=== PATIENT | male | born 1940 | race Caucasian/White ===

== ENCOUNTER → 2017-11-18 | Outpatient (CLI) | payer MEDICARE, BC ==
--- NOTE | 2017-11-18 15:43 | CT ---
EXAMINATION TYPE: CT abdomen pelvis w con DATE OF EXAM: 11/18/2017 COMPARISON: HISTORY: Gross hematuria, history of renal cell cancer and right nephrectomy. CT DLP: 1411 mGycm CONTRAST: CT scan of the abdomen and pelvis is performed with Oral Contrast and with IV Contrast, patient injec rosalinda with 80 mL of Isovue M300. FINDINGS: LUNG BASES-: No visible nodule. No infiltrate. The stomach is intrathoracic in location. LIVER/GB: No calcified gallstones. Innumerable simple cysts are seen of the liver. No solid hepatic lesions are detected. Largest cyst measures approximately 2.2 cm. Biliary tree is of normal caliber. PANCREAS: No inflammation. No distinct mass. SPLEEN: No splenic enlargement. No lesion seen. ADRENALS: No nodule. No thickening. KIDNEYS/BLADDER: Right-sided nephrectomy change. Right renal fossa is unremarkable. Left kidney demon strates parapelvic cysts. No solid left renal masses are detected. Urinary bladder is distended. Ther e is a large diverticulum emanating from the superior portion of the urinary bladder to the left of m idline measuring 8.3 x 7.2 cm. Several additional smaller bladder diverticula are noted. No distinct urinary bladder wall mass or thickening. BOWEL: Normal appendix. Normal bowel caliber. No inflammation. GENITAL ORGANS: No gross abnormality. LYMPH NODES: No greater than 1cm abdominal or pelvic lymph nodes are appreciated. AORTA: No significant abnormality. OSSEOUS STRUCTURES: No significant abnormality is seen. OTHER: No significant additional abnormality is seen. IMPRESSION: 1. Right-sided nephrectomy change. 2. Urinary bladder distention with multiple bladder diverticula noted. 3. Parapelvic cyst left kidney. No solid renal mass or nephrolithiasis seen. 4. The stomach is intrathoracic in location.
== END | disposition home or self-care (01) ==
LOC: RADCTMAIN 13:18
PROVIDERS: ATTEND Urology
DX: N28.1 Cyst of kidney, acquired (principal); N32.3 Diverticulum of bladder; N32.89 Other specified disorders of bladder; Z90.5 Acquired absence of kidney; Z85.528 Personal history of other malignant neoplasm of kidney; Z88.2 Allergy status to sulfonamides
CPT/HCPCS: 82565; 84520; 74177; 36415; Q9967

== ENCOUNTER 2018-05-30 17:52 | Observation (INO) | payer MEDICARE, BC ==
[2018-05-30 18:32] LABS: Glucose,Whole Blood 95 mg/dL (75-99)
[2018-05-30 18:52] LABS: Basophils % (A) 0 %; Eosinophils # (A) 0.1 k/uL (0-0.7); Eosinophils % (A) 1 %; HCT 44.2 % (39.0-53.0); HGB 14.2 gm/dL (13.0-17.5); Lymphocytes # (A) 0.7 k/uL (1.0-4.8); Lymphocytes % (A) 10 %; MCH 30.3 pg (25.0-35.0); MCHC 32.1 g/dL (31.0-37.0); MCV 94.2 fL (80.0-100.0); Mean Platelet Volume 7.5; Monocytes # (A) 0.3 k/uL (0-1.0); Monocytes % (A) 5 %; Neutrophils # (A) 5.7 k/uL (1.3-7.7); Neutrophils % (A) 84 %; Platelet Count 284 k/uL (150-450); RBC 4.69 m/uL (4.30-5.90); RDW 14.1 % (11.5-15.5); WBC 6.9 k/uL (3.8-10.6)
[2018-05-30 19:02] LABS: Partial Thromboplastin Time 24.5 sec (22.0-30.0); Prothrombin Time 10.5 sec (9.0-12.0)
[2018-05-30 19:03] LABS: Albumin 3.8 g/dL (3.5-5.0); Calcium 9.3 mg/dL (8.4-10.2); Potassium 4.2 mmol/L (3.5-5.1); Total Bilirubin 0.7 mg/dL (0.2-1.3); Total Protein 6.3 g/dL (6.3-8.2)
--- NOTE | 2018-05-30 19:05 | CT ---
EXAMINATION TYPE: CT brain wo con DATE OF EXAM: 05/30/2018 COMPARISON: None HISTORY: 78-year-old male with confusion, Altered mental status. TECHNIQUE: Examination was done in axial plane without intravenous contrast. Coronal and sagittal r econstructions performed. CT DLP: 1094.4 mGycm Automated exposure control for dose reduction was used. FINDINGS: There is no evidence of acute intracranial hemorrhage, acute ischemic changes, mass, mass-effect, or extra-axial fluid collection. There is no effacement of cerebral sulci or basal subarachnoid cister ns. There is no hydrocephalus. There is no midline shift. Bo-white matter distinction is preserv ed. Mild generalized supratentorial volume loss with mild patchy white matter hypodensities likely relati ng to changes of chronic small vessel ischemic disease. Scleral banding on the right. Leftward nasal septal deviation. Mastoid air cells well pneumatized. Pa ranasal sinuses appear clear. IMPRESSION: Mild generalized atrophy and changes of chronic small vessel ischemic disease. No acute intracranial abnormality seen.
--- NOTE | 2018-05-30 19:21 | XR ---
EXAMINATION TYPE: XR chest 2V DATE OF EXAM: 05/30/2018 COMPARISON: None HISTORY: 78-year-old male dizziness, altered mental status TECHNIQUE: AP and lateral views FINDINGS: Heart mildly enlarged. Mild hyperinflation. Suggestion of an underlying large hiatal hernia. Patchy d ensity at the right apex. Mild interstitial prominence. No significant pleural effusion seen. IMPRESSION: 1. Mild cardiomegaly and COPD. Patchy right apical opacity could represent pneumonia. Follow-up recom mended. 2. Underlying large hiatal hernia.
[2018-05-30 19:24] LABS: Acetaminophen <10.0 ug/mL; Salicylate <1.0 mg/dL
[2018-05-30 19:42] LABS: Appearance,Urine Clear (Clear); Bilirubin,Urine Negative (Negative); Blood,Urine Negative (Negative); Color,Urine Light Yellow; Glucose,Urine (UA) Negative (Negative); Ketones,Urine Negative (Negative); Leukocyte Esterase,Urine Negative (Negative); Nitrite,Urine Negative (Negative); PH, Urine 6.5 (5.0-8.0); Protein,Urine Negative (Negative); Urobilinogen,Urine <2.0 mg/dL (<2.0)
[2018-05-30 19:47] LABS: Amphetamine Screen,Urine Not Detected (NotDetected); Barbiturate Screen,Urine Not Detected (NotDetected); Benzodiazepines Screen,Urine Not Detected (NotDetected); Cocaine Screen,Urine Not Detected (NotDetected); Methadone Screen, Urine Not Detected (NotDetected); Opiate Screen,Urine Not Detected (NotDetected); Oxycodone Screen, Urine Not Detected (NotDetected); Phencyclidine Screen,Urine Not Detected (NotDetected); Tricyclic Antidepressant,Urine Not Detected (NotDetected); Urn Cannabinoid Scrn Not Detected (NotDetected)
--- NOTE | 2018-05-30 23:34 | ED ---
Altered Mental Status HPI - General Source: patient, EMS Mode of arrival: EMS Limitations: no limitations <Cinthia Collins - Last Filed: 05/31/18 00:18> <Ashley Anand - Last Filed: 05/31/18 07:57> - General Chief Complaint: Altered Mental Status Stated Complaint: exposed to fumes Time Seen by Provider: 05/30/18 18:14 - History of Present Illness Initial Comments: 78-year-old male presenting today for chief complaint of exposure to marijuana. Upon arrival patient is alert and oriented 3, however he would at times get easily distracted and started talking to himself. Patient had to be redirected often and was overall a very poor historian. ROS (-), patient denies any recent fever, chills, shortness of breath, chest pain, back pain, abdominal pain, nausea or vomiting, numbness or tingling, dysuria or hematuria, constipation or diarrhea, headaches or visual changes, or any other complaints. Pt NIH 0. Patient denies ingestion of medications or drugs. Patients only complaint is that he was exposed to marijuana smoke from his downstairs neighbors. At one point in history taking patient became emotional taking about feuding within his family, will consult EPS. Attempted to call patients family, no answer. No other numbers available to obtain patient baseline. (Cinthia Collins) - Related Data Home Medications Medication Instructions Recorded Confirmed Acetaminophen Tab [Tylenol Tab] 500 mg PO Q6H PRN 07/05/15 07/06/15 Aspirin 81 mg PO Q2D 07/05/15 07/06/15 Cephalexin [Keflex] 250 mg PO DAILY 07/05/15 07/06/15 Doxazosin [Cardura] 4 mg PO BID 07/05/15 07/06/15 Multivitamin [Men's Multi-Vitamin] 1 each PO DAILY 07/05/15 07/06/15 Ranitidine HCl [Zantac] 150 mg PO BID 07/05/15 07/06/15 Previous Rx's Medication Instructions Recorded Hydrocodone/Acetaminophen [[place] 1 - 2 each PO Q4HR PRN #30 tab 07/06/15 5-325] Allergies Allergy/AdvReac Type Severity Reaction Status Date / Time No Known Allergies Allergy Verified 07/06/15 10:16 Review of Systems ROS Other: All systems not noted in ROS Statement are negative. <Cinthia Collins - Last Filed: 05/31/18 00:18> ROS Other: All systems not noted in ROS Statement are negative. <Ashley Anand P - Last Filed: 05/31/18 07:57> ROS Statement: Those systems with pertinent positive or pertinent negative responses have been documented in the HPI. Past Medical History Past Medical History: Cancer, Eye Disorder, GERD/Reflux, Osteoarthritis (OA), Prostate Disorder Additional Past Medical History / Comment(s): Currently has an enlarged prostate & has been on an antbx. for several yrs. for this. Hiatal hernia, problems with constipation. Hx. of kidney Ca. History of Any Multi-Drug Resistant Organisms: None Reported Past Surgical History: Adenoidectomy, Hernia Repair, Tonsillectomy Additional Past Surgical History / Comment(s): L Hernia repair, R kidney removed 12 yrs. ago, R eye surgery 15 yrs. ago colonoscopy. Past Anesthesia/Blood Transfusion Reactions: No Reported Reaction Past Psychological History: No Psychological Hx Reported Smoking Status: Former smoker - Past Family History Brother(s) Family Medical History: Cancer Additional Family Medical History / Comment(s): unknown Mother Family Medical History: No Reported History <Cinthia Collins - Last Filed: 05/31/18 00:18> General Exam Limitations: no limitations <Cinthia Collins - Last Filed: 05/31/18 00:18> - General Exam Comments Initial Comments: General: The patient is awake and alert, in no distress, and does not appear acutely ill. Eye: Pupils are equal, round and reactive to light, extra-ocular movements are intact. No nystagmus. There is normal conjunctiva bilaterally. No signs of icterus. Ears, nose, mouth and throat: There are moist mucous membranes and no oral lesions. Neck: The neck is supple, there is no tenderness or JVD. Cardiovascular: There is a regular rate and rhythm. No murmur, rub or gallop is appreciated. Respiratory: Lungs are clear to auscultation, respirations are non-labored, breath sounds are equal. No wheezes, stridor, rales, or rhonchi. Gastrointestinal: Soft, non-distended, non-tender abdomen without masses or organomegaly noted. There is no rebound or guarding present. No CVA tenderness. Bowel sounds are unremarkable. Musculoskeletal: Normal ROM, no tenderness. Strength 5/5. Sensation intact. Pulses equal bilaterally 2+. Neurological: A&O x 3. CN II-XII intact, memory intact to immediately, intermediate and senior care recall. Able to follow simple verbal. Able to name a common object (pen). High quality, labial (pa) and lingual (la) speech. Low quality posterior pharynx/larynx (ga) voice sounds. Able to express general knowledge (days in a week). No hemineglect or inattention noted. Finger agnosia (-) and spatially oriented. Light touch and temperature sensation present over the face, chest, abdomen, back, UE bilaterally, and LE bilaterally. Able to localize point during point localization b/l and extinction. No visible bulk atrophy, hypertrophy, fasciculations, or myoclonus of the UE or LE b/l. Full PROM in UE and LE b/l. Bilateral muscle strength 5/5 for the following muscles: deltoid, biceps, triceps, brachioradialis, wrist extensors/flexor, hip flexor, hip abductors/adductors, hamstrings, quadriceps, feet dorsiflexors/plantar flexors. Finger to nose, finger to the examiners finger, and heel to pérez coordinated and accurate b/l. Coordinated and even demonstration of hand flip, finger to thumb, and toe tap b/l. Gait is coordinated and even in stride with tandem, toe and heel walk. (-) pronator drift. No nuchal rigidity. Skin: Skin is warm and dry and no rashes or lesions are noted. Psychiatric: Cooperative, easily distracted, required frequent redirection. (Cinthia Collins) Course Vital Signs 05/30/18 05/30/18 05/30/18 18:10 19:51 22:19 Temperature 97.8 F 98.1 F Pulse Rate 68 69 68 Respiratory 20 18 16 Rate Blood Pressure 172/98 170/107 Blood Pressure [Right Arm] O2 Sat by Pulse 97 Oximetry 05/31/18 05/31/18 05/31/18 00:46 01:24 01:56 Temperature 98.0 F 98.4 F 97.7 F Pulse Rate 66 86 Respiratory 18 17 18 Rate Blood Pressure 181/104 162/92 Blood Pressure 166/82 [Right Arm] O2 Sat by Pulse 98 96 Oximetry Medical Decision Making - Lab Data Result diagrams: 05/30/18 18:19 05/30/18 18:19 <Cinthia Collins - Last Filed: 05/31/18 00:18> - Lab Data Result diagrams: 05/30/18 18:19 05/30/18 18:19 <Ashley Anand - Last Filed: 05/31/18 07:57> - Medical Decision Making 78 presenting for exposure to fumes. pt states his neighbors were smoking something and he thinks he inhaled it, making him feel "funny". So he called EMS. Laboratory studies unremarkable. CT brain without contrast negative. EKG within acceptable limits. Troponin (-). CXR revealed focal pneumonia-given ceftriaxone. UA unremarkable. Pt will be admitted as we do not know his baseline there are no neurological deficits, however patient is easily distracted, and often found talking to himself. EPS cleared patient. Discussed case with attending provider, Dr. Anand who will speak to admitting provider Dr. Nickerson. Patient is agreeable with admission for pneumonia and AMS, repeat neuro exam no change. No focal deficits. (Cinthia Collins) Son examine the patient. Based on the patient's advanced age, her mental status and finding of pneumonia and radiology I do feel the patient would be safest remaining in the hospital for further evaluation. (Ashley Anand) - Lab Data Lab Results 05/30/18 05/30/18 05/30/18 Range/Units 18:19 18:19 18:19 WBC 6.9 (3.8-10.6) k/uL RBC 4.69 (4.30-5.90) m/uL Hgb 14.2 (13.0-17.5) gm/dL Hct 44.2 (39.0-53.0) % MCV 94.2 (80.0-100.0) fL MCH 30.3 (25.0-35.0) pg MCHC 32.1 (31.0-37.0) g/dL RDW 14.1 (11.5-15.5) % Plt Count 284 (150-450) k/uL Neutrophils % 84 % Lymphocytes % 10 % Monocytes % 5 % Eosinophils % 1 % Basophils % 0 % Neutrophils # 5.7 (1.3-7.7) k/uL Lymphocytes # 0.7 L (1.0-4.8) k/uL Monocytes # 0.3 (0-1.0) k/uL Eosinophils # 0.1 (0-0.7) k/uL Basophils # 0.0 (0-0.2) k/uL PT 10.5 (9.0-12.0) sec INR 1.0 (<1.2) APTT 24.5 (22.0-30.0) sec Sodium 142 (137-145) mmol/L Potassium 4.2 (3.5-5.1) mmol/L Chloride 109 H (98-107) mmol/L Carbon Dioxide 26 (22-30) mmol/L Anion Gap 7 mmol/L BUN 23 H (9-20) mg/dL Creatinine 1.15 (0.66-1.25) mg/dL Est GFR (CKD-EPI)AfAm 70 (>60 ml/min/1.73 sqM) Est GFR (CKD-EPI)NonAf 60 (>60 ml/min/1.73 sqM) Glucose 98 (74-99) mg/dL POC Glucose (mg/dL) (75-99) mg/dL POC Glu [employer] Operator ID Calcium 9.3 (8.4-10.2) mg/dL Total Bilirubin 0.7 (0.2-1.3) mg/dL AST 29 (17-59) U/L ALT 28 (21-72) U/L Alkaline Phosphatase 102 (38-126) U/L Ammonia (<30) umol/L Troponin I (0.000-0.034) ng/mL Total Protein 6.3 (6.3-8.2) g/dL Albumin 3.8 (3.5-5.0) g/dL Urine Color Urine Appearance (Clear) Urine pH (5.0-8.0) Ur Specific [place] (1.001-1.035) Urine Protein (Negative) Urine Glucose (UA) (Negative) Urine Ketones (Negative) Urine Blood (Negative) Urine Nitrite (Negative) Urine Bilirubin (Negative) Urine Urobilinogen (<2.0) mg/dL Ur Leukocyte Esterase (Negative) Salicylates mg/dL Urine Opiates Screen (NotDetected) Ur Oxycodone Screen (NotDetected) Urine Methadone Screen (NotDetected) Ur Propoxyphene Screen (NotDetected) Acetaminophen ug/mL Ur Barbiturates Screen (NotDetected) U Tricyclic Antidepress (NotDetected) Ur Phencyclidine Scrn (NotDetected) Ur Amphetamines Screen (NotDetected) U Methamphetamines Scrn (NotDetected) U Benzodiazepines Scrn (NotDetected) Urine Cocaine Screen (NotDetected) U Marijuana (THC) Screen (NotDetected) 05/30/18 05/30/18 05/30/18 Range/Units 18:19 18:19 18:19 WBC (3.8-10.6) k/uL RBC (4.30-5.90) m/uL Hgb (13.0-17.5) gm/dL Hct (39.0-53.0) % MCV (80.0-100.0) fL MCH (25.0-35.0) pg MCHC (31.0-37.0) g/dL RDW (11.5-15.5) % Plt Count (150-450) k/uL Neutrophils % % Lymphocytes % % Monocytes % % Eosinophils % % Basophils % % Neutrophils # (1.3-7.7) k/uL Lymphocytes # (1.0-4.8) k/uL Monocytes # (0-1.0) k/uL Eosinophils # (0-0.7) k/uL Basophils # (0-0.2) k/uL PT (9.0-12.0) sec INR (<1.2) APTT (22.0-30.0) sec Sodium (137-145) mmol/L Potassium (3.5-5.1) mmol/L Chloride (98-107) mmol/L Carbon Dioxide (22-30) mmol/L Anion Gap mmol/L BUN (9-20) mg/dL Creatinine (0.66-1.25) mg/dL Est GFR (CKD-EPI)AfAm (>60 ml/min/1.73 sqM) Est GFR (CKD-EPI)NonAf (>60 ml/min/1.73 sqM) Glucose (74-99) mg/dL POC Glucose (mg/dL) (75-99) mg/dL POC Glu [employer] Operator ID Calcium (8.4-10.2) mg/dL Total Bilirubin (0.2-1.3) mg/dL AST (17-59) U/L ALT (21-72) U/L Alkaline Phosphatase (38-126) U/L Ammonia <9 (<30) umol/L Troponin I <0.012 (0.000-0.034) ng/mL Total Protein (6.3-8.2) g/dL Albumin (3.5-5.0) g/dL Urine Color Urine Appearance (Clear) Urine pH (5.0-8.0) Ur Specific [place] (1.001-1.035) Urine Protein (Negative) Urine Glucose (UA) (Negative) Urine Ketones (Negative) Urine Blood (Negative) Urine Nitrite (Negative) Urine Bilirubin (Negative) Urine Urobilinogen (<2.0) mg/dL Ur Leukocyte Esterase (Negative) Salicylates <1.0 mg/dL Urine Opiates Screen (NotDetected) Ur Oxycodone Screen (NotDetected) Urine Methadone Screen (NotDetected) Ur Propoxyphene Screen (NotDetected) Acetaminophen <10.0 ug/mL Ur Barbiturates Screen (NotDetected) U Tricyclic Antidepress (NotDetected) Ur Phencyclidine Scrn (NotDetected) Ur Amphetamines Screen (NotDetected) U Methamphetamines Scrn (NotDetected) U Benzodiazepines Scrn (NotDetected) Urine Cocaine Screen (NotDetected) U Marijuana (THC) Screen (NotDetected) 05/30/18 05/30/18 Range/Units 18:31 19:00 WBC (3.8-10.6) k/uL RBC (4.30-5.90) m/uL Hgb (13.0-17.5) gm/dL Hct (39.0-53.0) % MCV (80.0-100.0) fL MCH (25.0-35.0) pg MCHC (31.0-37.0) g/dL RDW (11.5-15.5) % Plt Count (150-450) k/uL Neutrophils % % Lymphocytes % % Monocytes % % Eosinophils % % Basophils % % Neutrophils # (1.3-7.7) k/uL Lymphocytes # (1.0-4.8) k/uL Monocytes # (0-1.0) k/uL Eosinophils # (0-0.7) k/uL Basophils # (0-0.2) k/uL PT (9.0-12.0) sec INR (<1.2) APTT (22.0-30.0) sec Sodium (137-145) mmol/L Potassium (3.5-5.1) mmol/L Chloride (98-107) mmol/L Carbon Dioxide (22-30) mmol/L Anion Gap mmol/L BUN (9-20) mg/dL Creatinine (0.66-1.25) mg/dL Est GFR (CKD-EPI)AfAm (>60 ml/min/1.73 sqM) Est GFR (CKD-EPI)NonAf (>60 ml/min/1.73 sqM) Glucose (74-99) mg/dL POC Glucose (mg/dL) 95 (75-99) mg/dL POC Glu [employer] Operator ID Cinthia Roberson Calcium (8.4-10.2) mg/dL Total Bilirubin (0.2-1.3) mg/dL AST (17-59) U/L ALT (21-72) U/L Alkaline Phosphatase (38-126) U/L Ammonia (<30) umol/L Troponin I (0.000-0.034) ng/mL Total Protein (6.3-8.2) g/dL Albumin (3.5-5.0) g/dL Urine Color Light Yellow Urine Appearance Clear (Clear) Urine pH 6.5 (5.0-8.0) Ur Specific [place] 1.010 (1.001-1.035) Urine Protein Negative (Negative) Urine Glucose (UA) Negative (Negative) Urine Ketones Negative (Negative) Urine Blood Negative (Negative) Urine Nitrite Negative (Negative) Urine Bilirubin Negative (Negative) Urine Urobilinogen <2.0 (<2.0) mg/dL Ur Leukocyte Esterase Negative (Negative) Salicylates mg/dL Urine Opiates Screen Not Detected (NotDetected) Ur Oxycodone Screen Not Detected (NotDetected) Urine Methadone Screen Not Detected (NotDetected) Ur Propoxyphene Screen Not Detected (NotDetected) Acetaminophen ug/mL Ur Barbiturates Screen Not Detected (NotDetected) U Tricyclic Antidepress Not Detected (NotDetected) Ur Phencyclidine Scrn Not Detected (NotDetected) Ur Amphetamines Screen Not Detected (NotDetected) U Methamphetamines Scrn Not Detected (NotDetected) U Benzodiazepines Scrn Not Detected (NotDetected) Urine Cocaine Screen Not Detected (NotDetected) U Marijuana (THC) Screen Not Detected (NotDetected) Disposition Is patient prescribed a controlled substance at d/c from ED?: No Time of Disposition: 00:18 Decision to Admit Reason: Admit from EC Decision Date: 05/31/18 Decision Time: 00:18 <Cinthia Collins - Last Filed: 05/31/18 00:18> <Ashley Anand - Last Filed: 05/31/18 07:57> Clinical Impression: Pneumonia, Altered mental status Disposition: ADMITTED IP TO THIS HOSP Condition: Stable
[2018-05-31] MEDS ORDERED: NALOXONE 0.4 MG/ML 1 ML VIAL IV PRN (00:14)
[2018-05-31] MEDS ORDERED: hydrALAZINE HCL 20 MG/ML 1 ML VIAL IVP STA (01:14)
[2018-05-31] MEDS ORDERED: MORPHINE SULFATE 2 MG/ML SYRINGE IVP PRN (02:01)
[2018-05-31] MEDS: SODIUM CHLORIDE 0.9% 1,000 ML IV SCH (06:16)
[2018-05-31 09:26] VITALS: BMI 23.0
[2018-05-31] MEDS ORDERED: ACETAMINOPHEN TAB 500 MG TAB PO PRN (11:45)
--- NOTE | 2018-05-31 11:50 | P.HPIM ---
History of Present Illness This is a pleasant 78 years old male with past medical history of GERD, as her arthritis, BPH history of kidney cancer and hematuria. He presents because he felt he feeling high causes his neighbor somebody was smoking some tracts close to him. However patient told me this morning his back to his normal state. He still complaining of from cough and mild phlegm which is clear to yellow in color. But no dyspnea and no chest pain. No abdominal pain. He has history of prostate problem and kidney cancer and hematuria. However his UA is negative. Dr. 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 On admission CBC, INR, BMP, and liver enzymes are within normal limits. Urinalysis and urine toxicology drug screen was negative too. . CT of the brain showing no acute abnormality. Chest x-ray showing COPD, patchy right apical opacity, suspicious for pneumonia as per radiologist. And large hiatal hernia Review of Systems CONSTITUTIONAL: No fever, no malaise, no fatigue. HEENT: No recent visual problems or hearing problems. Denied any sore throat. CARDIOVASCULAR: No orthopnea, PND, no palpitations, no syncope. PULMONARY: No shortness of breath, no cough, no hemoptysis. GASTROINTESTINAL: No diarrhea, no nausea, no vomiting, no abdominal pain. Normoactive bowel sounds. NEUROLOGICAL: No headaches, no weakness, no numbness. HEMATOLOGICAL: Denies any bleeding or petechiae. GENITOURINARY: Denies any burning micturition, frequency, or urgency. MUSCULOSKELETAL/RHEUMATOLOGICAL: Denies any joint pain, swelling, or any muscle pain. ENDOCRINE: Denies any polyuria or polydipsia. Past Medical History Past Medical History: Cancer, Eye Disorder, GERD/Reflux, Osteoarthritis (OA), Prostate Disorder Additional Past Medical History / Comment(s): Currently has an enlarged prostate & has been on an antbx. for several yrs. for this. Hiatal hernia, problems with constipation. Hx. of kidney Ca. History of Any Multi-Drug Resistant Organisms: None Reported Past Surgical History: Adenoidectomy, Hernia Repair, Tonsillectomy Additional Past Surgical History / Comment(s): L Hernia repair, R kidney removed 12 yrs. ago, R eye surgery 15 yrs. ago colonoscopy. Past Anesthesia/Blood Transfusion Reactions: No Reported Reaction Past Psychological History: No Psychological Hx Reported Smoking Status: Former smoker Additional Past Alcohol Use History / Comment(s): Quit smoking in 1989. Smoked 1-2 PPd x 40 yrs. 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 Past Drug Use History: None Reported - Past Family History Brother(s) Family Medical History: Cancer Additional Family Medical History / Comment(s): Hawa, brother from cancer. Eladio, brother from heart condition. Cordell, brother, alive- unknown history Mother History Unknown: Yes Family Medical History: No Reported History Sister(s) History Unknown: Yes Family Medical History: No Reported History Additional Family Medical History / Comment(s): Pascale Rueda, sister. Vijaya Kyle, sister Medications and Allergies Home Medications Medication Instructions Recorded Confirmed Type Acetaminophen Tab [Tylenol Tab] 500 mg PO Q6H PRN 07/05/15 05/31/18 History Cephalexin [Keflex] 250 mg PO DAILY 07/05/15 05/31/18 History Multivitamin [Men's Multi-Vitamin] 1 tab PO DAILY 07/05/15 05/31/18 History Doxazosin Mesylate [Cardura] 4 mg PO BID 05/31/18 05/31/18 History Finasteride [Proscar] 5 mg PO DAILY 05/31/18 05/31/18 History Montelukast [Singulair] 10 mg PO DAILY 05/31/18 05/31/18 History Promethazine 6.25MG/5Ml [Phenergan 5 - 10 ml PO QID PRN 05/31/18 05/31/18 History Syrup] Allergies Allergy/AdvReac Type Severity Reaction Status Date / Time No Known Allergies Allergy Verified 05/31/18 08:12 Physical Exam Vitals: Vital Signs Temp Pulse Pulse Resp BP BP Pulse Ox 05/31/18 08:58 99 05/31/18 08:00 17 05/31/18 05:50 97.2 F L 78 17 141/88 97 05/31/18 04:23 72 18 159/85 97 05/31/18 01:56 97.7 F 86 18 162/92 96 05/31/18 01:24 98.4 F 17 166/82 05/31/18 00:46 98.0 F 66 18 181/104 98 05/30/18 22:19 98.1 F 68 16 03/24/19 19:51 69 18 170/107 05/30/18 18:10 97.8 F 68 20 172/98 97 Intake and Output 05/30/18 05/31/18 05/31/18 22:59 06:59 14:59 Output Total 350 Balance -350 Output: Urine 350 Other: Voiding Method Toilet # Voids 2 Weight 77.111 kg GENERAL: The patient is alert and oriented x3, not in any acute distress. Well developed, well nourished. HEENT: Pupils are round and equally reacting to light. EOMI. No scleral icterus. No conjunctival pallor. Normocephalic, atraumatic. No pharyngeal erythema. No thyromegaly. CARDIOVASCULAR: S1 and S2 present. No murmurs, rubs, or gallops. PULMONARY: Chest is clear to auscultation, no wheezing or crackles. ABDOMEN: Soft, nontender, nondistended, normoactive bowel sounds. No palpable organomegaly. MUSCULOSKELETAL: No joint swelling or deformity. EXTREMITIES: No cyanosis, clubbing, or pedal edema. NEUROLOGICAL: Gross neurological examination did not reveal any focal deficits. SKIN: No rashes. Get up and go test: Normal Results CBC & Chem 7: 05/30/18 18:19 05/30/18 18:19 Labs: Abnormal Lab Results - Last 24 Hours (Table) 05/30/18 05/30/18 Range/Units 18:19 18:19 Lymphocytes # 0.7 L (1.0-4.8) k/uL Chloride 109 H (98-107) mmol/L BUN 23 H (9-20) mg/dL Thrombosis Risk Factor Assmnt - Choose All That Apply Any of the Below Risk Factors Present?: Yes Each Risk Factor Represents 3 Points: Age 75 years or older Thrombosis Risk Factor Assessment Total Risk Factor Score: 3 Thrombosis Risk Factor Assessment Level: Moderate Risk Assessment and Plan Plan: -Possible mild walking pneumonia: Patient was started on antibiotics, I think patient can be treated with oral antibiotics and follow-up as an outpatient. 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 We'll check influenza -Patient feeling high and not himself yesterday. We'll ask for psych evaluation -History of prostatic problem and kidney cancer, he follows up with urologist -Large hiatal hernia -History of GERD
[2018-05-31] MEDS: DOXAZOSIN 4 MG TAB PO SCH (19:50)
[2018-06-01] MEDS: SODIUM CHLORIDE 0.9% 1,000 ML IV SCH ×2 (05:14→23:52)
[2018-06-01] MEDS: DOXAZOSIN 4 MG TAB PO SCH ×2 (07:28→20:02)
[2018-06-01] MEDS: FINASTERIDE 5 MG TAB PO SCH (07:29)
[2018-06-01] MEDS: MONTELUKAST 10 MG TAB PO SCH (07:29)
--- NOTE | 2018-06-01 14:44 | P.CN ---
Psychiatric Consult - . Consult date: 06/01/18 Consult:: 06/01/18 13:38 AMS which is status post means altered mental status of unknown origin Assessment and Plan Assessment: 78-year-old male presenting today for chief complaint of exposure to marijuana. Upon arrival patient is alert and oriented 3, however he would at times get easily distracted and started talking to himself. Patient had to be redirected often and was overall a very poor historian. ROS (-), patient denies any recent fever, chills, shortness of breath, chest pain, back pain, abdominal pain, nausea or vomiting, numbness or tingling, dysuria or hematuria, constipation or diarrhea, headaches or visual changes, or any other complaints. Pt NIH 0. Patient denies ingestion of medications or drugs. Patients only complaint is that he was exposed to marijuana smoke from his downstairs neighbors. At one point in history taking patient became emotional taking about feuding within his family, will consult EPS. Attempted to call patients family, no answer. No other numbers available to obtain patient baseline. pt came to the hospital because his neighbors were smoking pot and it was making him feel dizzy. He says that since he has been away from his apartment he is feeling much better and thinking better. He denies SI HI no delusions or paranoia. He likes living by himself but wishes his neighbors would not smoke near him. - Related Data Home Medications Medication Instructions Recorded Confirmed Acetaminophen Tab [Tylenol Tab] 500 mg PO Q6H PRN 07/05/15 07/06/15 Aspirin 81 mg PO Q2D 07/05/15 07/06/15 Cephalexin [Keflex] 250 mg PO DAILY 07/05/15 07/06/15 Doxazosin [Cardura] 4 mg PO BID 07/05/15 07/06/15 Multivitamin [Men's Multi-Vitamin] 1 each PO DAILY 07/05/15 07/06/15 Ranitidine HCl [Zantac] 150 mg PO BID 07/05/15 07/06/15 Previous Rx's Medication Instructions Recorded Hydrocodone/Acetaminophen [[place] 1 - 2 each PO Q4HR PRN #30 tab 07/06/15 5-325] Allergies Allergy/AdvReac Type Severity Reaction Status Date / Time No Known Allergies Allergy Verified 07/06/15 10:16 Past Medical History Past Medical History: Cancer, Eye Disorder, GERD/Reflux, Osteoarthritis (OA), Prostate Disorder Additional Past Medical History / Comment(s): Currently has an enlarged prostate & has been on an antbx. for several yrs. for this. Hiatal hernia, problems with constipation. Hx. of kidney Ca. History of Any Multi-Drug Resistant Organisms: None Reported Past Surgical History: Adenoidectomy, Hernia Repair, Tonsillectomy Additional Past Surgical History / Comment(s): L Hernia repair, R kidney removed 12 yrs. ago, R eye surgery 15 yrs. ago colonoscopy. Past Anesthesia/Blood Transfusion Reactions: No Reported Reaction Past Psychological History: No Psychological Hx Reported Smoking Status: Former smoker - Past Family History Brother(s) Family Medical History: Cancer Additional Family Medical History / Comment(s): unknown Mother Family Medical History: No Reported History Mental Status Examination - this is a pleasant 78-year-old male was seen in his hospital room at bedside with 3 family supportin her room with him. He was a reliable historian pleasant in nature and did not appear to have any overt psychosis. The patient presents alert, pleasant, and cooperative. There calmly seated without any agitated behavior. [he] reports that [his] mood is good. Affect is congruent and euthymic. [he] deny having any suicidal or homicidal ideation intent or plan. [he] denies any auditory or visual hallucinations. There is no evidence of any delusional thought content. [his] thought process is linear and goal-directed. [his] speech is fluent and nonpressured. [his] memory and concentration is grossly intact for the purposes of this session. Psychiatric impression: Change in mentation was due to change in respiratory drive due to my Psychiatric recommendations: No psychiatric meds are needed now doesn't need inpatient stay at [address] at [facility]. Thank you for the most interesting consult Gianluca Guillen D.O. PhD (1) Altered mental status Current Visit: Yes Status: Acute Code(s): R41.82 - ALTERED MENTAL STATUS, UNSPECIFIED SNOMED Code(s): 017979477 Time with Patient: Less than 30
--- NOTE | 2018-06-01 16:54 | P.DS ---
Providers Date of admission: 05/31/18 01:01 Expected date of discharge: 06/01/18 Attending physician: Mundo Pina Consults: 05/31/18 11:48 Consult Physician Routine Consulting Provider: Gianluca Guillen Consult Reason/Comments: ams Do you want consulting provider notified?: Already Contacted Primary care physician: Keven Jim [facility] Course: Please use this as my progress note for today's date of service 06/01/2018 if patient does not go home. Plan: Continue on current medication regime ,monitoring and symptomatic treatment. Maintain IV antibiotics. At discharge we'll prescribe short course of antibiotics.. Patient to be discharged home with home care. Final diagnoses: -Atelectasis, possibly early pneumonia, short course of antibiotics. -Influenza ruled out -Patient feeling high and not himself yesterday secondary to inhalation of second hand marijuana smoke. Cleared by psychiatry. -History of prostatic problem and kidney cancer, he follows up with urologist -Large hiatal hernia -History of GERD Hospital course:This is a pleasant 78 years old male with past medical history of GERD, as her arthritis, BPH history of kidney cancer and hematuria. He presents because he felt he feeling high causes his neighbor somebody was smoking some tracts close to him. However patient told me this morning his back to his normal state. He still complaining of from cough and mild phlegm which is clear to yellow in color. But no dyspnea and no chest pain. No abdominal pain. He has history of prostate problem and kidney cancer and hematuria. However his UA is negative. Dr. Cao the urologist recommended that he see his cartridge assembling machine adjuster for preoperative evaluation for his prostate as per patient. On admission CBC, INR, BMP, and liver enzymes are within normal limits. Urinalysis and urine toxicology drug screen was negative too. . CT of the brain showing no acute abnormality. Chest x-ray showing COPD, patchy right apical opacity, suspicious for pneumonia as per radiologist. And large hiatal hernia Evaluated by psychiatry, cleared for discharge. No hallucinations. Does not require inpatient psychiatry. Received antibiotics, nebulized bronchodilators. Afebrile, normal WBC. Maintaining O2 sats of 100% on room air. Significant clinical improvement. Patient will need a rolling walker at discharge as advised per physical therapy evaluation, generalized weakness . Patient is being discharged home with family today in a stable condition with guarded prognosis. GENERAL: The patient is alert and oriented x3, not in any acute distress. Well developed, well nourished. HEENT: Pupils are round and equally reacting to light. EOMI. No scleral icterus. No conjunctival pallor. Normocephalic, atraumatic. CARDIOVASCULAR: S1 and S2 present. No murmurs, rubs, or gallops. PULMONARY: Chest is clear to auscultation, no wheezing or crackles. ABDOMEN: Soft, nontender, nondistended, normoactive bowel sounds. No palpable organomegaly. MUSCULOSKELETAL: No joint swelling or deformity. EXTREMITIES: No cyanosis, clubbing, or pedal edema. NEUROLOGICAL: Gross neurological examination did not reveal any focal deficits. SKIN: No rashes. The impression and plan of care has been dictated as directed. : I performed a history and examination of this patient, discussed the same with the dictator. I agree with the dictator's note ,documented as a scribe. Any additional findings or plans will be noted. Time taken: 35 minutes Patient Condition at Discharge: Stable Plan - Discharge Summary Discharge Rx Participant: No New Discharge Prescriptions: New Cefuroxime Axetil [Ceftin] 500 mg PO BID 3 Days #6 tab Continue Acetaminophen Tab [Tylenol] 500 mg PO Q6H PRN PRN Reason: Pain Multivitamin [Men's Multi-Vitamin] 1 tab PO DAILY Montelukast [Singulair] 10 mg PO DAILY Finasteride [Proscar] 5 mg PO DAILY Doxazosin Mesylate [Cardura] 4 mg PO BID Promethazine 6.25MG/5Ml [Phenergan Syrup] 5 - 10 ml PO QID PRN PRN Reason: Cough Discontinued Cephalexin [Keflex] 250 mg PO DAILY Discharge Medication List Acetaminophen Tab [Tylenol] 500 mg PO Q6H PRN 07/05/15 [History] Multivitamin [Men's Multi-Vitamin] 1 tab PO DAILY 07/05/15 [History] Doxazosin Mesylate [Cardura] 4 mg PO BID 05/31/18 [History] Finasteride [Proscar] 5 mg PO DAILY 05/31/18 [History] Montelukast [Singulair] 10 mg PO DAILY 05/31/18 [History] Promethazine 6.25MG/5Ml [Phenergan Syrup] 5 - 10 ml PO QID PRN 05/31/18 [History] Cefuroxime Axetil [Ceftin] 500 mg PO BID 3 Days #6 tab 06/01/18 [Rx] Follow up Appointment(s)/Referral(s): Ryan Baca MD [Primary Care Provider] - 3 Days [facility], [NON-STAFF] - 1 Week Activity/Diet/Wound Care/Special Instructions: pt will be sent home with a rolling walker with seat and breaks s/t weakness and for the pt safety. Care Plan Goals (MU): cardiac diet activity is limited you see your doctor Discharge Disposition: HOME WITH HOME HEALTH SERVICES
[2018-06-02 05:39] VITALS: BP 173/82; PULSE 76; RESP 18; TEMP 97.6
[2018-06-02] MEDS: FINASTERIDE 5 MG TAB PO SCH (07:21)
[2018-06-02] MEDS: MONTELUKAST 10 MG TAB PO SCH (07:21)
[2018-06-02] MEDS: DOXAZOSIN 4 MG TAB PO SCH (07:21)
--- NOTE | 2018-06-02 15:19 | P.DS ---
<Zayra Gtz - Last Filed: 06/02/18 15:15> Providers Expected date of discharge: 06/02/18 Attending physician: Dr. Pina Final diagnoses: -Atelectasis, possibly early pneumonia, short course of antibiotics. -Influenza ruled out -Patient feeling high and not himself secondary to inhalation of second hand marijuana smoke. Cleared by psychiatry. -History of prostatic problem and kidney cancer, he follows up with urologist -Large hiatal hernia -GERD Hospital course:This is a pleasant 78 years old male with past medical history of GERD, as her arthritis, BPH history of kidney cancer and hematuria. He presents because he felt he feeling high causes his neighbor somebody was smoking some tracts close to him. However patient told me this morning his back to his normal state. He still complaining of from cough and mild phlegm which is clear to yellow in color. But no dyspnea and no chest pain. No abdominal pain. He has history of prostate problem and kidney cancer and hematuria. However his UA is negative. Dr. Cao the urologist recommended that he see his brassiere cup mold cutter for preoperative evaluation for his prostate as per patient. On admission CBC, INR, BMP, and liver enzymes are within normal limits. Urinalysis and urine toxicology drug screen was negative too. . CT of the brain showing no acute abnormality. Chest x-ray showing COPD, patchy right apical opacity, suspicious for pneumonia as per radiologist. And large hiatal hernia Evaluated by psychiatry, cleared for discharge. No hallucinations. Does not require inpatient psychiatry. Received antibiotics, nebulized bronchodilators. Afebrile, normal WBC. Maintaining O2 sats of 100% on room air. Significant clinical improvement. Rolling walker ordered at discharge as advised per physical therapy evaluation, generalized weakness . Patient is being discharged home with family today in a stable condition with guarded prognosis. GENERAL: alert and oriented x3, no acute distress. CARDIOVASCULAR: S1 and S2 present. No murmurs, rubs, or gallops. PULMONARY: Chest is clear to auscultation, no wheezing or crackles. ABDOMEN: Soft, nontender, nondistended, normoactive bowel sounds. No palpable organomegaly. NEUROLOGICAL: Gross neurological examination did not reveal any focal deficits. The impression and plan of care has been dictated as directed. : I performed a history and examination of this patient, discussed the same with the dictator. I agree with the dictator's note ,documented as a scribe. Any additional findings or plans will be noted. Time taken: 35 minutes Patient Condition at Discharge: Stable Plan - Discharge Summary Discharge Rx Participant: No New Discharge Prescriptions: New Cefuroxime Axetil [Ceftin] 500 mg PO BID 3 Days #6 tab Continue Acetaminophen Tab [Tylenol] 500 mg PO Q6H PRN PRN Reason: Pain Multivitamin [Men's Multi-Vitamin] 1 tab PO DAILY Montelukast [Singulair] 10 mg PO DAILY Finasteride [Proscar] 5 mg PO DAILY Doxazosin Mesylate [Cardura] 4 mg PO BID Promethazine 6.25MG/5Ml [Phenergan Syrup] 5 - 10 ml PO QID PRN PRN Reason: Cough Discontinued Cephalexin [Keflex] 250 mg PO DAILY Discharge Medication List Acetaminophen Tab [Tylenol] 500 mg PO Q6H PRN 07/05/15 [History] Multivitamin [Men's Multi-Vitamin] 1 tab PO DAILY 07/05/15 [History] Doxazosin Mesylate [Cardura] 4 mg PO BID 05/31/18 [History] Finasteride [Proscar] 5 mg PO DAILY 05/31/18 [History] Montelukast [Singulair] 10 mg PO DAILY 05/31/18 [History] Promethazine 6.25MG/5Ml [Phenergan Syrup] 5 - 10 ml PO QID PRN 05/31/18 [History] Cefuroxime Axetil [Ceftin] 500 mg PO BID 3 Days #6 tab 06/01/18 [Rx] Follow up Appointment(s)/Referral(s): Ryan Baca MD [Primary Care Provider] - 3 Days (Please call and schedule appointment) [facility], [NON-STAFF] - 1 Week Patient Instructions/Handouts: Weakness (DC), Pneumonia (DC) Activity/Diet/Wound Care/Special Instructions: Care Plan Goals (MU): Heart Healthy Diet Activity limited until follow up appointment with Primary Care Provider Discharge Disposition: HOME WITH HOME HEALTH SERVICES <YovaniMoose E - Last Filed: 06/02/18 22:00> Providers Date of admission: 05/31/18 01:01 Attending physician: Mundo Nickerson I have discussed the plan and I have reviewed the note with Farhat Venegas and I agree with it except what is mentioned below Pt is seen and examined by me at bed side his symptoms of not feeling self and other are greatly improved on the current therapy . on the day of discharge she returned to her baseline with no chest pain no dyspnea, no change in urine or bowel habit , no nausea or vomiting , no abd pain , she is tolerating diet well . no fever Pt was instructed about the problems and management plan and Pt verbalized understanding and acceptance Pt is found stable and can be discharged to the community but needs follow up as outpt Consults: 05/31/18 11:48 Consult Physician Routine Consulting Provider: Gianluca Guillen Consult Reason/Comments: ams Do you want consulting provider notified?: Already Contacted Primary care physician: Keven Davis
== END 2018-06-02 10:31 | disposition home health service (06) ==
LOC: EC 17:52 → 4MS4W 05-31 01:01
PROVIDERS: ADMIT Hospitalist; ATTEND Hospitalist
DX: T40.7X1A Poisoning by cannabis (derivatives), accidental (unintentional), initial encounter (principal); R41.82 Altered mental status, unspecified; J98.11 Atelectasis; K21.9 Gastro-esophageal reflux disease without esophagitis; M19.90 Unspecified osteoarthritis, unspecified site; N40.0 Benign prostatic hyperplasia without lower urinary tract symptoms; K44.9 Diaphragmatic hernia without obstruction or gangrene; Z85.528 Personal history of other malignant neoplasm of kidney; Z79.82 Long term (current) use of aspirin; Z79.899 Other long term (current) drug therapy; Z79.2 Long term (current) use of antibiotics; Z87.891 Personal history of nicotine dependence; Z80.9 Family history of malignant neoplasm, unspecified; Z82.49 Family history of ischemic heart disease and other diseases of the circulatory system; R29.700 NIHSS score 0
CPT/HCPCS: 96366 ×3; 96375 ×2; 96365; 99285; 36415; 94760; 93005; 97161; 97165; 80053; 82140; 84484; 85025; 85610; 85730; 81003; 80306; 83520 ×2; 87502; 71046; 70450; G0378 ×3; S0138 ×2; J0360; J0696 ×2; J2270

== ENCOUNTER → 2019-04-02 | Outpatient (CLI) | payer MEDICARE, BC ==
--- NOTE | 2019-04-03 14:10 | CT ---
EXAMINATION TYPE: CT chest wo con DATE OF EXAM: 04/02/2019 COMPARISON: Prior CT chest 07/15/2012, CT abdomen 11/18/2017 HISTORY: Shortness of breath. CT DLP: 716.9 mGycm. Automated Exposure Control for Dose Reduction was Utilized. TECHNIQUE: CT scan of the thorax is performed without IV contrast. Limited scanning performed with h igh-resolution algorithm in supine and prone positions. FINDINGS: Large hiatal hernia with intrathoracic stomach is present. Lack of intravenous contrast cou ld compromise sensitivity. LUNGS: The lungs are remarkable for extensive emphysematous changes, scarring especially the apices s imilar to prior exam, bullous changes again noted at the right lung apex, there are areas of bronchie ctasis especially in the right upper lobe as on prior. There is no pleural effusion or pneumothorax s een. The tracheobronchial tree is patent. MEDIASTINUM: Lack of IV contrast is noted to limit evaluation for mediastinal and especially hilar ad enopathy. There are no definitive greater than 1 cm hilar or mediastinal lymph nodes. Prominence of pulmonary artery could be due to pulmonary artery hypertension. No cardiomegaly or pericardial effusi on is seen. There are coronary artery calcifications. OTHER: Low dense foci are again scattered within the liver. Extrarenal pelvis left kidney again seen. Colonic interposition noted anterior to the liver as on prior. IMPRESSION: Emphysema, bronchiectasis, scarring, intrathoracic stomach
== END | disposition home or self-care (01) ==
LOC: RADCTMAIN 12:50
PROVIDERS: ATTEND Internal Medicine
DX: J43.9 Emphysema, unspecified (principal); J47.9 Bronchiectasis, uncomplicated; J98.4 Other disorders of lung
CPT/HCPCS: 71250

== ENCOUNTER → 2019-04-12 | Outpatient (CLI) | payer MEDICARE, BC ==
--- NOTE | 2019-04-13 11:44 | ECHOF ---
Referral Reason:I27.20 Pulmonary hypertension MEASUREMENTS -------- HEIGHT: 182.9 cm WEIGHT: 84.4 kg BP: 164/84 RVIDd: 2.6 cm (< 3.3) IVSd: 1.3 cm (0.6 - 1.1) LVIDd: 3.7 cm (3.9 - 5.3) LVPWd: 1.3 cm (0.6 - 1.1) IVSs: 1.6 cm LVIDs: 2.9 cm LVPWs: 2.0 cm LA Diam: 3.0 cm (2.7 - 3.8) LAESV Index (A-L): 30.18 ml/m Ao Diam: 3.8 cm (2.0 - 3.7) AV Cusp: 2.7 cm (1.5 - 2.6) MV EXCURSION: 26.508 mm (> 18.000) MV EF SLOPE: 167 mm/s (70 - 150) EPSS: 0.3 cm AR PHT: 771 ms RAP: 5.00 mmHg RVSP: 34.94 mmHg TAPSE: 31.58 mm FINDINGS -------- Sinus rhythm. This was a technically good study. The left ventricular size is normal. There is mild concentric left ventricular hypertrophy. Overa ll left ventricular systolic function is normal with, an EF between 55 - 60 %. The right ventricle is normal in size. LA is midly dilated 29-33ml/m2. The right atrium is normal in size. Interatrial and interventricular septum intact. There is mild aortic valve sclerosis. Trace to mild aortic regurgitation. Mild mitral regurgitation is present. Mild tricuspid regurgitation present. There is mild pulmonary hypertension. The right ventricular systolic pressure, as measured by Doppler, is 34.94mmHg. Trace/mild (physiologic) pulmonic regurgitation. The aortic root is dilated measuring 3.8cm. Normal inferior vena cava with normal inspiratory collapse consistent with estimated right atrial pre ssure of 5 mmHg. There is no pericardial effusion. CONCLUSIONS -------- 1. Sinus rhythm. 2. This was a technically good study. 3. The left ventricular size is normal. 4. There is mild concentric left ventricular hypertrophy. 5. Overall left ventricular systolic function is normal with, an EF between 55 - 60 %. 6. The right ventricle is normal in size. 7. LA is midly dilated 29-33ml/m2. 8. The right atrium is normal in size. 9. Interatrial and interventricular septum intact. 10. There is mild aortic valve sclerosis. 11. Trace to mild aortic regurgitation. 12. Mild mitral regurgitation is present. 13. Mild tricuspid regurgitation present. 14. There is mild pulmonary hypertension. 15. The right ventricular systolic pressure, as measured by Doppler, is 34.94mmHg. 16. Trace/mild (physiologic) pulmonic regurgitation. 17. The aortic root is dilated measuring 3.8cm. 18. Normal inferior vena cava with normal inspiratory collapse consistent with estimated right atrial pressure of 5 mmHg. 19. There is no pericardial effusion. HAND COPER: Janet Krueger RDCS
== END | disposition home or self-care (01) ==
LOC: RADECHMAIN 14:01
PROVIDERS: ATTEND Internal Medicine
DX: I08.3 Combined rheumatic disorders of mitral, aortic and tricuspid valves (principal); I27.20 Pulmonary hypertension, unspecified
CPT/HCPCS: 93306

== ENCOUNTER 2019-08-11 08:14 | Observation (INO) | payer MEDICARE, BC ==
[2019-08-11] MEDS ORDERED: SODIUM CHLORIDE 0.9% 1,000 ML IV STA (08:34)
[2019-08-11] MEDS ORDERED: MECLIZINE 12.5 MG TAB PO STA (08:38)
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
[2019-08-11 08:53] LABS: Basophils % (A) 1 %; Eosinophils # (A) 0.1 k/uL (0-0.7); Eosinophils % (A) 2 %; HCT 42.9 % (39.0-53.0); HGB 13.7 gm/dL (13.0-17.5); Lymphocytes # (A) 0.9 k/uL (1.0-4.8); Lymphocytes % (A) 18 %; MCH 30.8 pg (25.0-35.0); MCHC 31.9 g/dL (31.0-37.0); MCV 96.5 fL (80.0-100.0); Mean Platelet Volume 7.3; Monocytes # (A) 0.3 k/uL (0-1.0); Monocytes % (A) 5 %; Neutrophils # (A) 3.6 k/uL (1.3-7.7); Neutrophils % (A) 73 %; Platelet Count 224 k/uL (150-450); RBC 4.45 m/uL (4.30-5.90); WBC 4.9 k/uL (3.8-10.6)
[2019-08-11 09:01] LABS: Albumin 3.3 g/dL (3.5-5.0); Calcium 8.7 mg/dL (8.4-10.2); Potassium 4.9 mmol/L (3.5-5.1); Total Bilirubin 0.4 mg/dL (0.2-1.3)
[2019-08-11 09:21] LABS: Partial Thromboplastin Time 22.4 sec (22.0-30.0); Prothrombin Time 10.1 sec (9.0-12.0)
--- NOTE | 2019-08-11 09:29 | CT ---
EXAMINATION TYPE: CT brain kristy wo con DATE OF EXAM: 08/11/2019 COMPARISON: 05/30/2018 HISTORY: Fall CT DLP: 1318.4 mGycm, Automated exposure control for dose reduction was used. CONTRAST: Patient injected with 0 mL of Isovue 300. CT of the brain is performed utilizing 3 mm thick sections through the posterior fossa and 3 mm thick sections through the remaining calvarium. Study is performed within 24 hours of arrival to the hospital. No abnormal hyperdensity is present to suggest an acute intracranial hemorrhage. No mass lesion is evident. No acute infarcts are evident. There is periventricular white matter hypodensity. A larger area of h ypodensity is to the right watershed region with extension towards the right temporal lobe. Subcortic al infarct in this region should be considered. This may be old but is an interval finding from 2019. No effacement of adjacent sulci is evident. There is some mild prominence of the sulci suggesting ex vacuo effect. Ventricles and sulci are prominent for the patient age. Paranasal sinuses and mastoid air cells within the [id number] are clear. IMPRESSIONS: 1. Atrophy with periventricular white matter changes. 2. Subcortical infarct within the right watershed region is likely present. Findings are more suggest lynsey for an older event but is an interval finding from 2019. CT cervical spine. COMPARISON: None CT of the cervical spine is performed in the axial plane at 2 mm thick sections. Reconstructed image s in the coronal, and sagittal plane are reviewed on the computer. No acute fractures are evident. Vertebral body alignment is normal. Multilevel degenerative disc changes are present. Vertebral body heights are preserved. Endplate spurring is present C3-4 C4-5 C5-6. Posterior spinal lamellar line appears intact. Uncovertebral joint hypertrophy has severe left and moderate right foraminal narrowing at C3-4. Moder ate to severe bilateral foraminal stenosis at C4-5, and C5-6 is present from uncovertebral joint hype rtrophy . Some moderate left foraminal stenosis at C6-7 is present. IMPRESSIONS: 1. No acute osseous abnormality. 2. Degenerative disc changes. 3. Uncovertebral joint hypertrophy contributing to bilateral foraminal stenosis discussed above
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
[2019-08-11 10:09] LABS: Appearance,Urine Clear (Clear); Bilirubin,Urine Negative (Negative); Blood,Urine Negative (Negative); Color,Urine Light Yellow; Glucose,Urine (UA) Negative (Negative); Ketones,Urine Negative (Negative); Leukocyte Esterase,Urine Moderate (Negative); Nitrite,Urine Negative (Negative); Protein,Urine Negative (Negative); Specific Gravity,Urine 1.008 (1.001-1.035); Urobilinogen,Urine <2.0 mg/dL (<2.0); WBC,Urine 45 /hpf (0-5)
--- NOTE | 2019-08-11 10:36 | CT ---
EXAMINATION TYPE: CT angio head neck DATE OF EXAM: 08/11/2019 HISTORY: Neuro deficit COMPARISON: None CT DLP: 417.7 mGycm. Automated Exposure Control for Dose Reduction was Utilized. TECHNIQUE: CTA scan of the neck is performed with IV Contrast, patient injected with 65 mL of Isovue 370, axial images are obtained, coronal and sagittal reformatted images are reviewed. Three-D recons tructed images are created on an independent workstation and reviewed. Source images are reviewed. FINDINGS: Carotid/Vascular Structures: There is a three-vessel arch. Vertebral arteries are codominant. Common carotid arteries bifurcate normally into internal and external carotid arteries. Vertebral arteries a nd internal carotid arteries are patent to the skull base. There is some tortuosity of the right inte rnal carotid artery. Minimal plaquing without stenosis is present. There is tortuosity of the left in ternal carotid artery with minimal plaquing but without flow-limiting stenosis. There may be some kin kellen of the left internal carotid artery. Cervical of [place]: Vertebral basilar system appears normal. Posterior cerebral vasculature is unrema rkable. Internal carotid arteries bifurcate normally into A1 and M1 segments. A2 segments are normal. The anterior communicating artery is patent. Left Posterior communicating artery is absent. Right po sterior communicating artery is patent. Other: Lung apices within the goajh-cy-flms have emphysematous changes. There is some diffuse thicken ing in the right apex. A pleural irregularity is on the left apex. Scarring and underlying neoplasm c onsidered. These findings however appear to be present on 07/15/2012 CTA chest. Degenerative changes ar e within the cervical spine especially C3-4 through C5-6. IMPRESSION: 1. No flow-limiting stenosis bilateral carotid bifurcations. Some kinking of the left internal caroti d artery may be present proximally. 2. Normal tunica-biloxi of [place]
[2019-08-11] MEDS ORDERED: NALOXONE 0.4 MG/ML 1 ML VIAL IV PRN (11:50)
[2019-08-11] MEDS ORDERED: cefTRIAXone IN SWFI 1,000 MG/10 ML SYRINGE IVP STA (11:52)
[2019-08-11] MEDS: SODIUM CHLORIDE 0.9% 1,000 ML IV SCH (12:54)
[2019-08-11] MEDS ORDERED: ENALAPRILAT 1.25 MG/ML 1 ML VIAL IVP STA (13:19)
[2019-08-11] MEDS ORDERED: ACETAMINOPHEN TAB 500 MG TAB PO PRN (13:44)
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
[2019-08-11] MEDS: ASPIRIN 325 MG TAB PO SCH (21:12)
[2019-08-11] MEDS: DOXAZOSIN 4 MG TAB PO SCH (21:12)
[2019-08-11] MEDS: FAMOTIDINE 20 MG TAB PO SCH (21:12)
[2019-08-12] MEDS: SODIUM CHLORIDE 0.9% 1,000 ML IV SCH ×2 (02:19→12:53)
[2019-08-12 04:51] LABS: Cholesterol 148 mg/dL (<200); HDL Cholesterol 43 mg/dL (40-60); LDL Cholesterol,Calculated 93 mg/dL (0-99); Triglycerides 59 mg/dL (<150)
[2019-08-12] MEDS ORDERED: ENOXAPARIN 40 MG/0.4 ML SYRINGE SQ SCH (09:00)
[2019-08-12] MEDS ORDERED: MONTELUKAST 10 MG TAB PO SCH (09:00)
[2019-08-12] MEDS ORDERED: MULTIVITAMINS, THERA 1 EACH TAB PO SCH (09:00)
[2019-08-12] MEDS: ASPIRIN 325 MG TAB PO SCH (10:06)
[2019-08-12] MEDS: FINASTERIDE 5 MG TAB PO SCH ×2 (10:08→10:41)
[2019-08-12] MEDS: FAMOTIDINE 20 MG TAB PO SCH (10:08)
[2019-08-12] MEDS: DOXAZOSIN 4 MG TAB PO SCH (10:10)
[2019-08-12 13:27] VITALS: BP 147/78; RESP 16; TEMP 98
[2019-08-12 13:41] LABS: Hemoglobin A1C 5.5 % (4.0-6.0)
[2019-08-12 15:22] VITALS: PULSE 71
[2019-08-12 15:32] LABS: Folate, Serum >24.0 ng/mL
--- NOTE | 2019-08-13 16:43 | P.DS ---
Providers Date of admission: 08/11/19 11:50 Expected date of discharge: 08/12/19 Attending physician: Jaja Morel Consults: 08/11/19 11:50 Consult Physician Routine Consulting Provider: Sherrill Hurtado Consult Reason/Comments: bilat proximal upper extremity weakness Do you want consulting provider notified?: Yes Primary care physician: Keven [facility] Course: final diagnosis -weakness of bilateral upper extremities without any weakness in the legs -Vertigo appears to be benign -gastroesophageal reflux disease -benign prostatic hypertrophy -DVT prophylaxis Discharge disposition Patient is being discharged in a stable condition with guarded prognosis to home. Patient will follow-up with Dr. Baca upon discharge. Patient also instructed to follow up with neurology as well as orthopedic surgery in the outpatient setting. Patient will continue on Aspirin per neurology recommendations upon discharge. Total time taken is 35 minutes. History of present illness This is a 79-year-old male who was recently admitted with vertigo that resolved and significant upper extremity weakness and was being closely monitored. Patient was evaluated by neurology recommending MRI of which patient was unsure of eye implant surgery from the past and unsure if was able to safely receive an MRI along with some form of urologic surgery that he had in the past. Patient will need to follow up with pcp for medical records to ensure he can safely receive an MRI. Patient instructed to continue with aspirin in the outpatient setting for stroke prevention. Patient's bilateral shoulder weakness and discomfort will need follow up with orthopedic surgery as this has been ongoing. CTA was normal. CT of the brain shows atrophic changes and subcortical infarct within the right watershed that is suggestive of an older event but changed from 2019 CT. Currently no reports of chest pain, palpitations, or shortness. Patient is afebrile. No reports of nausea or vomiting and patient is tolerating diet. On exam vital signs are stable. Temp is 98.0F, pulse is 60, respirations are 16, blood pressure 154/83, oxygen saturation is 100% on room air. Cardio S1, S2 are present. Respiratory shows clear to auscultation. Abdomen is soft and nontender. Nervous system shows no focal deficits. Please refer to medication reconciliation sheet for a list of medications. Patient Condition at Discharge: Fair Plan - Discharge Summary New Discharge Prescriptions: New Aspirin 325 mg PO DAILY 30 Days #30 tab Continue Acetaminophen Tab [Tylenol] 500 mg PO Q6H PRN PRN Reason: Pain Multivitamin [Men's Multi-Vitamin] 1 tab PO DAILY Montelukast [Singulair] 10 mg PO DAILY Finasteride [Proscar] 5 mg PO DAILY Doxazosin Mesylate [Cardura] 4 mg PO BID Cetirizine HCl [Zyrtec] 10 mg PO DAILY Discontinued Cephalexin [Keflex] 250 mg PO DAILY Discharge Medication List Acetaminophen Tab [Tylenol] 500 mg PO Q6H PRN 07/05/15 [History] Multivitamin [Men's Multi-Vitamin] 1 tab PO DAILY 07/05/15 [History] Doxazosin Mesylate [Cardura] 4 mg PO BID 05/31/18 [History] Finasteride [Proscar] 5 mg PO DAILY 05/31/18 [History] Montelukast [Singulair] 10 mg PO DAILY 05/31/18 [History] Cetirizine HCl [Zyrtec] 10 mg PO DAILY 08/11/19 [History] Aspirin 325 mg PO DAILY 30 Days #30 tab 08/12/19 [Rx] Follow up Appointment(s)/Referral(s): Ryan Baca MD [Primary Care Provider] - 08/15/19 1:10 pm (You need a refferal for the neuroligist from your primary doctor they need to fax it to their office and they will schedule your follow up for neurolgy.) [facility], [NON-STAFF] - 1 Week Inocencio Garrido MD [Medical Doctor] - 1 Week Jean Claude Sagastume MD [STAFF PHYSICIAN] - 08/19/19 3:00 pm Activity/Diet/Wound Care/Special Instructions: Activity Limited until follow-up Continue current diet Follow-up with primary care provider upon discharge, to arrange for possible MRI, patient also needs to obtain medical records in regards to eye transplant in the urology surgery he had in the past in order to be able to get an MRI Continue with aspirin 325 mg daily Follow up with neurology in the outpatient setting for possible MRI of the cervical spine Follow-up with orthopedic surgery for shoulders Discharge Disposition: HOME WITH HOME HEALTH SERVICES
== END 2019-08-12 17:23 | disposition home health service (06) ==
LOC: EC 08:14 → 5NMEDONC 11:50
PROVIDERS: ADMIT Internal Medicine; ATTEND Internal Medicine
DX: R53.1 Weakness (principal); R42 Dizziness and giddiness; R11.0 Nausea; I10 Essential (primary) hypertension; H91.90 Unspecified hearing loss, unspecified ear; K21.9 Gastro-esophageal reflux disease without esophagitis; N40.0 Benign prostatic hyperplasia without lower urinary tract symptoms; M19.90 Unspecified osteoarthritis, unspecified site; R00.1 Bradycardia, unspecified; E86.0 Dehydration; G31.9 Degenerative disease of nervous system, unspecified; F02.80 Dementia in other diseases classified elsewhere, unspecified severity, without behavioral disturbance, psychotic disturbance, mood disturbance, and anxiety; R90.82 White matter disease, unspecified; M47.892 Other spondylosis, cervical region; M48.02 Spinal stenosis, cervical region; I77.89 Other specified disorders of arteries and arterioles; M50.30 Other cervical disc degeneration, unspecified cervical region; R29.6 Repeated falls; Z86.73 Personal history of transient ischemic attack (TIA), and cerebral infarction without residual deficits; Z03.818 Encounter for observation for suspected exposure to other biological agents ruled out; Z85.528 Personal history of other malignant neoplasm of kidney; Z79.899 Other long term (current) drug therapy; Z79.2 Long term (current) use of antibiotics; Z86.69 Personal history of other diseases of the nervous system and sense organs; Z87.19 Personal history of other diseases of the digestive system; Z90.89 Acquired absence of other organs; Z98.890 Other specified postprocedural states; Z90.5 Acquired absence of kidney; Z87.891 Personal history of nicotine dependence; Z80.9 Family history of malignant neoplasm, unspecified; Z82.49 Family history of ischemic heart disease and other diseases of the circulatory system
CPT/HCPCS: 96361 ×2; 96372; 96374; 96375; 99285; 36415; 93005; 80061; 80053; 84443; 82607; 82746; 84484; 85025; 85610; 85730; 81001; 87040; 87086; 83036; 71046; 72125; 70496; 70450; 70498; G0378; U0003; J1650; J0696; Q9967

== ENCOUNTER → 2022-03-17 | Outpatient (CLI) | payer MEDICARE, BC ==
--- NOTE | 2022-03-17 14:12 | US ---
EXAMINATION TYPE: US kidneys/renal and bladder DATE OF EXAM: 03/17/2022 COMPARISON: CT 11/18/2017 CLINICAL HISTORY: N18.32 CHRONIC KIDNEY DISEASE, STAGE 3B. EXAM MEASUREMENTS: Right Kidney: Surgically absent Left Kidney: 11.8 x 4.1 x 5.0 cm Right Kidney: surgically absent Left Kidney: multiple parapelvic cysts largest measuring 1.0 x 1.0 x 0.7cm, dilated calyces Bladder: irregular wall on right, possible right diverticulum, there appears to be a septation on the right IMPRESSION: 1. Surgically absent right kidney. 2. Trabeculated urinary bladder with debris, findings grossly similar to prior CT in 2018 which show ed multiple diverticula of the urinary bladder. Correlate with urinalysis. 3. Peripelvic left renal cysts without definitive hydronephrosis. Similar to prior CT in 2018.
== END | disposition home or self-care (01) ==
LOC: RADUSWWP 13:27
PROVIDERS: ATTEND Internal Medicine
DX: N28.1 Cyst of kidney, acquired (principal); N18.32 Chronic kidney disease, stage 3b; Z90.5 Acquired absence of kidney
CPT/HCPCS: 76770

== ENCOUNTER 2022-12-29 11:59 | Emergency (ER) | payer BC, MEDICARE ==
[2022-12-29 12:22] VITALS: RESP 16
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
[2022-12-29 13:34] LABS: Basophils % (A) 0 %; Eosinophils # (A) 0.1 k/uL (0-0.7); Eosinophils % (A) 1 %; HCT 43.8 % (39.0-53.0); HGB 14.2 gm/dL (13.0-17.5); Lymphocytes # (A) 0.6 k/uL (1.0-4.8); Lymphocytes % (A) 13 %; MCH 31.7 pg (25.0-35.0); MCHC 32.5 g/dL (31.0-37.0); MCV 97.4 fL (80.0-100.0); Mean Platelet Volume 7.5; Monocytes # (A) 0.2 k/uL (0-1.0); Monocytes % (A) 5 %; Neutrophils # (A) 3.9 k/uL (1.3-7.7); Neutrophils % (A) 80 %; Platelet Count 208 k/uL (150-450); RDW 13.1 % (11.5-15.5); WBC 4.9 k/uL (3.8-10.6)
[2022-12-29 14:01] LABS: African American GFR (CKD) 57 (>60 ml/min/1.73 sqM); Anion Gap 7 mmol/L; Blood Urea Nitrogen 27 mg/dL (9-20); Carbon Dioxide 23 mmol/L (22-30); Chloride 110 mmol/L (98-107); Glucose 102 mg/dL (74-99); Non-African American GFR(CKD) 49 (>60 ml/min/1.73 sqM); Potassium 4.9 mmol/L (3.5-5.1); Sodium 140 mmol/L (137-145)
[2022-12-29 16:21] LABS: Bacteria,Urine Rare /hpf; RBC,Urine 2 /hpf (0-5); WBC,Urine 102 /hpf (0-5)
[2022-12-29 16:23] LABS: Appearance,Urine Clear (Clear); Bilirubin,Urine Negative (Negative); Color,Urine Yellow; Glucose,Urine (UA) Negative (Negative); Ketones,Urine Negative (Negative); Protein,Urine Negative (Negative)
[2022-12-29 16:24] LABS: Blood,Urine Negative (Negative); Leukocyte Esterase,Urine Large (Negative); Nitrite,Urine Negative (Negative); Urobilinogen,Urine <2.0 mg/dL (<2.0)
[2022-12-29 16:43] LABS: Amphetamine Screen,Urine Not Detected (NotDetected); Barbiturate Screen,Urine Not Detected (NotDetected); Benzodiazepines Screen,Urine Not Detected (NotDetected); Cocaine Screen,Urine Not Detected (NotDetected); Methadone Screen, Urine Not Detected (NotDetected); Opiate Screen,Urine Not Detected (NotDetected); Oxycodone Screen, Urine Not Detected (NotDetected); Phencyclidine Screen,Urine Not Detected (NotDetected); Tricyclic Antidepressant,Urine Not Detected (NotDetected); Urn Cannabinoid Scrn Not Detected (NotDetected)
[2022-12-29 18:09] VITALS: BP 165/92; PULSE 59; TEMP 97.5
[2022-12-29] MEDS ORDERED: DOXAZOSIN 4 MG TAB PO SCH (21:00)
[2022-12-30] MEDS ORDERED: LORazepam 2 MG/ML INJ IM STA (00:07)
[2022-12-30] MEDS ORDERED: diphenhydrAMINE 50 MG/ML 1 ML VIAL IM STA (00:15)
== END 2022-12-30 00:39 ==
LOC: EC 11:59
DX: R45.851 Suicidal ideations (principal); F32.A Depression, unspecified; M19.90 Unspecified osteoarthritis, unspecified site; Z79.899 Other long term (current) drug therapy; Z20.822 Contact with and (suspected) exposure to COVID-19
CPT/HCPCS: 82075; 36415; 80048; 85025; 81001; 80306; 87635; 99285; 96372 ×2; J2060; J1200